=== PATIENT | female | born 1990 | race Caucasian/White ===

== ENCOUNTER 2019-01-13 13:31 | Emergency (ER) | payer OTHER ==
[~2019-01-13] VITALS: Ht 154.9 cm; Wt 59.0 kg
[2019-01-13 13:55] VITALS: BP_SYST 102
--- NOTE | 2019-01-13 13:58 | NUR ---
Patient arrived via POV, AAOx4, and ambulatory with steady gait. Patient c/c of cough, worse at night. Patient states history of asthma, no asthma attacks since young childhood. Patient states no inhaler has been used. Patient states no fever, chills, draining from ears, eyes, or nose. Patient states cough is dry and non productive. Will continue to follow up and monitor.
--- NOTE | 2019-01-13 13:58 | NUR ---
Patient to ER bed 07 to gown for evaluation. Side rails up.
--- NOTE | 2019-01-13 14:02 | NUR ---
ER at bedside examining patient.
[2019-01-13 14:30] VITALS: BP_SYST 102
--- NOTE | 2019-01-13 14:30 | NUR ---
Patient given written and verbal discharge instructions and verbalizes understanding. ER MD discussed with patient the results and treatment provided. Patient in stable condition. ID arm band removed. Rx of albuterol and augmentin given. Patient educated on pain management and to follow up with PMD. Pain Scale 0/10. Opportunity for questions provided and answered. Medication side effect fact sheet provided.
== END 2019-01-13 14:30 | disposition home or self-care (01) ==
LOC: SED 13:31
DX: J40 Bronchitis, not specified as acute or chronic (principal); J02.9 Acute pharyngitis, unspecified
CPT/HCPCS: 99283